=== PATIENT | female | born 1950 | race Caucasian/White ===

== ENCOUNTER 2017-11-28 06:19 | Inpatient (IN) ==
[2017-11-28] MEDS ORDERED: Clindamycin 900 MG/50 ML 900 MG/50 ML IV.SOLN IVPB ONE ×2 (06:35→12:06)
[2017-11-28] MEDS ORDERED: Albuterol 2.5 MG/3 ML NEBULIZER IH ONE (06:35)
[2017-11-28] MEDS ORDERED: Ringers Solution, Lactated 1,000 ML IVC SCH (06:45)
[2017-11-28] MEDS ORDERED: *HR* Propofol 200 MG/20 ML VIAL IVP ONE (07:04)
[2017-11-28] MEDS ORDERED: Lidocaine -MPF 4% 5 ML AMPUL ONE (07:04)
[2017-11-28] MEDS ORDERED: Lidocaine -MPF 2% 2 ML VIAL ONE (07:04)
[2017-11-28] MEDS ORDERED: *HR* FentaNYL (PF) 100 MCG/2 ML VIAL ONE ×2 (07:04→12:39)
[2017-11-28] MEDS ORDERED: *HR* Rocuronium Bromide 50 MG/5 ML VIAL ONE (07:04)
[2017-11-28] MEDS ORDERED: Dexamethasone 4 MG/ML VIAL ONE (07:04)
[2017-11-28] MEDS ORDERED: Ondansetron 4 MG/2 ML VIAL ONE (07:04)
[2017-11-28] MEDS ORDERED: *HR* Midazolam HCl 2 MG/2 ML VIAL ONE (07:04)
[2017-11-28] MEDS ORDERED: *HR* Remifentanil 1 MG VIAL IVP ONE ×3 (07:04→12:36)
[2017-11-28] MEDS ORDERED: *HR* Succinylcholine 200 MG/10 ML VIAL IVP ONE (07:04)
[2017-11-28] MEDS ORDERED: *HR* Phenylephrine 10 MG/ML VIAL ONE ×2 (07:11→12:33)
--- NOTE | 2017-11-28 07:23 | Anesthesia Evaluation PreOp ---
Date of Encounter: 11/28/17 Time of Encounter: 07:20 - Past History Planned Operation: PLIF L2-L5 Cardiac History: HTN, Hyperlipidemia, Arrhythmia (H/O A-Fib, last dose coumadin taken 11/20/2017) Pulmonary History: Smoker (40 years), Asthma, Snore PHOTOVOLTAIC SOLAR CELL DESIGNER History: Denies Any Significant HX Other Medical History: Diabetes Type II Anesthesia History: No Prior Anesthetic Complications, Past Anesthesia Alcohol Use: none Drug use: none Medications and Allergies Aspirin [Adult Low Dose Aspirin EC] 81 mg PO DAILY 05/06/15 [History] Atorvastatin [Lipitor] 40 mg PO HS 05/06/15 [History] Diltiazem HCl [Diltiazem ER] 240 mg PO Q12H 05/06/15 [History] Fluticasone Propionate [Flovent Hfa] 110 mcg IH BID 05/06/15 [History] Ipratropium/Albuterol Sulfate [Combivent Respimat Inhal [place]] 1 puff IH QID [History] Multivitamin [Multi-Day Vitamins] 1 each PO DAILY 05/06/15 [History] Ubidecarenone [Co Q10] 200 mg PO DAILY 05/06/15 [History] Cyanocobalamin (Vitamin B-12) [Vitamin B-12] 1,000 mcg SL DAILY 06/10/15 [ History] Ibuprofen [Motrin] 800 mg PO Q8HR 06/10/15 [History] Multivitamin [Multi-Day Vitamins] 1 each PO DAILY 06/10/15 [History] Oxycodone HCl/Acetaminophen [Percocet 10-325 mg Tablet] 1 tab PO Q6H PRN #39 tab 06/10/15 [Rx] 3 Allergy/AdvReac Type Severity Reaction Status Date / Time Penicillins Allergy Hives Verified 11/21/17 10:18 - Meds/Allergy Pre-op Review Medications Reviewed: Yes Allergies Reviewed: Yes Beta Blockers on Current Med List: No Anesthesia Results - Labs Laboratory Tests 11/21/17 11/21/17 11/21/17 10:55 10:55 10:55 WBC 6.9 Hgb 12.1 Hct 37.7 Plt Count 313 PT 24.8 H INR 2.2 APTT 45.7 H Sodium 138 Potassium 4.3 BUN 20 Creatinine 1.03 - Imaging EKG: report reviewed (11/21/2017 SINUS BRADYCARDIA WITH SINUS ARRHYTHMIA) Additional studies: 08/09/2014 Stress Perfusion imaging was negative for ischemia or infarct. Exercise ECG was negative for ischemia. Exercise capacity was fair. Normal hemodynamic response. Rare ectopy at rest and recovery. During stress there are occasional PACs and PVCs. Patient had no chest pain with stress. Gated EF = 63%. The LV is dilated. LVEDV 152 mL There is no evidence of TID. 08/08/2014 Echo LVEF 60%. Normal left ventricular size and systolic function. There is evidence of mild diastolic dysfunction of the left ventricle. Normal left atrial size. Normal right atrial size. Normal right ventricular size and function. No significant valvular dysfunction. No significant TR gradient to detect pulmonary hypertension. IVC is not dilated. Anesthesia Exam O2 Sat Height 1.63 m Height 1.63 m Height 1.63 m Weight 81.647 kg Weight 81.647 kg Weight 81.647 kg O2 Sat by Pulse Oximetry 97 Vital Signs Temp Pulse Resp BP Pulse Ox 98.1 F 69 18 134/66 97 11/28/17 06:44 11/28/17 06:44 11/28/17 06:44 11/28/17 06:44 11/28/17 06:44 Blood Glucose* 150 Height: 5'4'' Weight: 180 lbs NPO (# of Hours): 8 Pain Scale: 0 Pain Scale Used: Numeric (1 - 10) - HEENT Pupil (Motor): EOMI Mallampati: II Teeth: Normal Oral Opening: Greater than 3 - PHOTOVOLTAIC SOLAR CELL DESIGNER LOC: Oriented PHOTOVOLTAIC SOLAR CELL DESIGNER Motor: Normal RUE, Normal LUE, Normal LLE, Normal Face, Deficit RLE PHOTOVOLTAIC SOLAR CELL DESIGNER Sensory: Normal: RUE, LUE, RLE, LLE, Face - Cardiac Rhythm: Regular Murmur: None - Pulmonary Breath Sounds: bilateral Clear Respiratory Effort: Symmetrical Anesthesia Assess/Plan ASA Score: 3 Modified [place] Scale for Level of Consciousness: Cooperative, oriented, and tranquil Anesthetic Plan: General Monitoring Plan: Standard Monitors Recovery Plan: PACU
[2017-11-28] MEDS ORDERED: Acetaminophen IV 1,000 MG/100 ML INFUS..BTL ONE (07:36)
--- NOTE | 2017-11-28 07:38 | History & Physical Report ---
Date of Encounter: 11/28/17 Time of Encounter: 07:37 24 Hour HP Update - Instructions Instructions: If the History and Physical is less than 30 days old and was completed prior to A.M. admission and or procedure and has NOT been updated on calendar day of procedure please complete this update prior to performing procedure. - Update Patient reports changes in Medical Condition: No Changes in examination, assessment, or condition: No Changes in Medication: No Preop tests/diagnostics Reviewed: Yes Pre-Op MRSA Screen: Negative Surgery Remains Indicated: Yes Consent for Planned Operative Procedure(s) Verified: Yes - Pre-Operative Checklist Preoperative Checklist Indicated: No Prophylactic Antibiotic Ordered: Yes Home Medications Include Beta Raymond: No Beta Raymond Taken Today (Day of Surgery): No Beta Raymond Taken Yesterday (Day Prior to Surgery): No Is VTE Prophylaxis Indicated?: Yes
[2017-11-28] MEDS ORDERED: Bacitracin 50,000 UNIT, Polymyxin B Sulfate 500,000 UNIT, Sodium Chloride IRRigation 1,... IR ONE (07:45)
[2017-11-28] MEDS ORDERED: EPHEDrine 50 MG/ML VIAL ONE (08:02)
[2017-11-28] MEDS ORDERED: Ondansetron 4 MG/2 ML VIAL IVP ONE (08:49)
[2017-11-28] MEDS ORDERED: MORPHINE SUL Oral CONC 10 MG/0.5 ML ORAL.SYG SL PRN (08:49)
[2017-11-28] MEDS ORDERED: *HR* Promethazine 25 MG/ML VIAL IVP PRN (08:49)
[2017-11-28] MEDS ORDERED: *HR* Labetalol 20 MG/4 ML SYRINGE IVP PRN (08:49)
[2017-11-28] MEDS ORDERED: *HR* Meperidine 25 MG/ML SYRINGE IVP PRN (08:49)
[2017-11-28] MEDS ORDERED: *HR* HYDROmorphone (PF) 1 MG/ML SYRINGE IVP PRN (08:49)
[2017-11-28] MEDS ORDERED: *HR* OxyCODONE Immed Rel 5 MG TABLET PO PRN (08:49)
[2017-11-28] MEDS ORDERED: *HR* Morphine 10 MG/ML VIAL ONE (12:28)
--- NOTE | 2017-11-28 12:52 | Orthopedic Operative Note ---
Date of procedure: 11/28/17 Pre-op diagnosis: Degenerative scoliosis, lumbar stenosis, lumbar radiculopathy Post-op diagnosis: same Operation/Findings: Posterior lumbar interbody fusion L2-L5: The patient successfully underwent general endotracheal anesthesia. The patient was given antibiotics prior to the start of the procedure. Compression boots and stockings were used for deep vein thrombosis prophylaxis. A Beyer catheter was placed. Leads for neuro monitoring were placed on the upper and lower extremities. This included the cranium. The neuro monitoring personnel confirmed there were satisfactory readings prior to the start of the procedure. The patient was turned prone on the Aamir table. The back was prepped and draped in the usual sterile fashion. An incision was was marked and centered over the involved L2-L5 levels in the mid line. The incision was deepened through the lumbar fascia. Bovie cautery and Dotson elevators were used to reflect the paraspinal musculature at the lateral extent of the transverse processes of the involved L2 , L3, L4, and L5 levels. Zina clamps were placed over the L4 and L5 spinous processes. An intraoperative lateral fluorograph was obtained. A conversation was held between the surgeon and radiologist and both confirmed we had the correct operative levels. We then placed pedicle screws in standard fashion with the aid of fluoroscopy and anatomic landmarks. Briefly a starter awl was used. A gearshift was subsequently used to enter the quickbooks bookkeeper hole via a transpedicular route into the vertebral body. The quickbooks bookkeeper hole was tapped with an undersized instrument, and subsequently seven 6.5 x 40 mm pedicle screws were placed bilaterally at the indicated L2, L3 and L4 levels. A unilateral pedicle screw was placed on the right side at L5 secondary to concerns of screw placement on the left at L5. The screws were tested with the aid of the neurologic monitoring staff via pedicle screw stimulation. All reading suggested there was no significant cortical wall breech. The screws were also evaluated fluoro- graphically and appeared to be in satisfactory position. We then turned our attention to the decompression portion of the procedure. We removed the supraspinous and interspinous ligaments and subsequently the insertion of the ligamentum flavum on the undersurface of the proximal L4 lamina was dislodged with a curette. We then removed the ligamentum flavum as well as undercut the facets at this L4-L5 level to decompress the lateral recesses. We also performed a L4 laminectomy. We moved proximally to the L3-4 levels and subsequently to the L2-3 levels and again removed hypertrophied ligamentum flavum, undercut the facets at L3-4 and L2-3, did partial medial facetectomies, and performing laminectomies of L3 and L2. After the decompression, which was over and above that which was required to place the interbody grafts, the foramen and traversing roots at these L2-3, L3-4, and L4- 5 levels were found to be free and patent. We also took part of the medial facets at L2-3, L3-4, and L4-5 order to aid in the decompression. We then protected the neural elements including the thecal sac and traversing nerve root on the left at L3-4 with a dural retractor. We made an annulotomy into the L3-L4 disc space and then removed entire disc material using Pituitary instruments. We trialed various size grafts after the endplates were prepared for graft insertion. A 10 x 26 enter body graft fit well within the L3-L4 disc space. We obtained some bone from the left posterior superior iliac spine through us a separate incision and combined with this with the bone which we had saved from the laminectomy of L2, L3 and L4 portion of the procedure. This autograft bone was first placed in the anterior portion of the L3-L4 disc space and additional bone was placed within the interbody graft spacer. We then placed the interbody graft spacer obliquely across the L3-L4 disc space towards the midline while protecting the neural elements with a root retractor. When the graft was found to be in satisfactory position the manager express was removed. We then turned our attention to the L2-3 level where again we prepared for insertion of an interbody graft. This involved protecting the neural elements on the left with a dural retractor, making an annulotomy into the L2-3 disc space, removing entire disc material at L2-3, and trialing a interbody graft. An 8 x 26 mm interbody graft fit well within the disc space. We packed the anterior portion of the L2-3 disc space with autograft bone, and subsequently placed and a by 26 mm interbody graft obliquely across the disc space towards the midline. When found to be in appropriate position the manager express was removed. This left interbody grafts at L2-3 and L3-4. These were the levels where there was [id number] approximation on the left due to the degenerative scoliosis. We then copiously irrigated the wound. We then decorticated the transverse processes as well as the facet joints of the involved L2-3, L3-4, and L4 -L5 levels to aid in the posterolateral fusion. We placed autograft bone in the lateral gutters over these regions. We then placed rods within the screw heads of the involved levels L2 through L5 levels on the right and L2-L4 levels on the left. We performed distraction maneuvers on the left side of the screw jake interface and compression maneuvers on the right side to improve this degenerative scoliosis previously noted. We locked and finally tightened the construct. We then closed the wound in layers with 1 Vicryl for the fascia, 2- 0 Vicryl. Subcutaneous tissue, and Dermabond was used for skin closure. Sterile dressings were placed over the wound. The patient was turned supine on a hospital bed and extubated. All sponge instruments and needle counts were correct at the end of the procedure. The patient tolerated the procedure well without complications. Anesthesia: GETA Surgeon: Michael Quiñones Jr Was there an assistant real estate manager present: No Estimated blood loss (cc): 200 Specimen: none Condition: stable Disposition: PACU
[2017-11-28] MEDS ORDERED: Naloxone 0.4 MG/ML INJ IVP PRN (14:29)
[2017-11-28] MEDS ORDERED: Acetaminophen 325 MG TABLET PO PRN (14:29)
[2017-11-28] MEDS ORDERED: Ondansetron 4 MG/2 ML VIAL IVP PRN (14:29)
[2017-11-28] MEDS ORDERED: Clindamycin 600 MG/50 ML 600 MG/50 ML IV.SOLN IVPB SCH ×2 (16:00→21:45)
[2017-11-28] MEDS: *HR* OxyCODONE Immed Rel 5 MG TABLET PO PRN ×2 (16:27→20:26)
[2017-11-28] MEDS: Ringers Solution, Lactated 1,000 ML IVC SCH (16:27)
[2017-11-28] MEDS ORDERED: Clindamycin 600 MG in D5% in Water 50 ML IVPB SCH (20:00)
[2017-11-28] MEDS: Budesonide/Formoterol 80/4.5 MDI IH SCH (21:58)
[2017-11-28] MEDS: Clindamycin 600 MG/50 ML 600 MG/50 ML IV.SOLN IVPB SCH (21:58)
[2017-11-29] MEDS: *HR* OxyCODONE Immed Rel 5 MG TABLET PO PRN ×4 (00:25→22:16)
[2017-11-29 02:43] LABS: Basophils % 0.1 %; Hematocrit 24.3 % (35.3-44.9); Immature Granulocytes % 0.5 % (0-4); Lymphocytes % 10.5 %; Mean Corpuscular HGB Conc 32.9 g/dL (31.6-35.5); Mean Corpuscular Hemoglobin 30.1 pg (28.0-33.3); Mean Corpuscular Volume 91.4 fL (83.0-100.0); Mean Platelet Volume 10.2 fL (9.4-12.4); Monocytes # 0.8 K/mcL (0.0-1.3); Neutrophils # 7.7 K/mcL (1.6-8.9); Platelet Count 236 K/mcL (140-400); Red Blood Count 2.66 M/mcL (3.82-4.97); Red Cell Distribution Width 14.8 % (11.5-14.5); Segmented Neutrophils % 80.9 %
[2017-11-29 03:01] LABS: BUN/Creatinine Ratio 21 (6-26); Blood Urea Nitrogen 20 mg/dL (8-23); Calcium 8.3 mg/dL (8.6-10.3); Carbon Dioxide 23 mEq/L (23-29); Chloride 108 mEq/L (98-107); Glucose 153 mg/dL (70-105); Osmolality,Calculated 288 (280-300); Potassium 4.2 mEq/L (3.5-5.1); Sodium 136 mEq/L (136-145); eGFR For Non-African Americans 58 (> 60)
[2017-11-29] MEDS: Clindamycin 600 MG/50 ML 600 MG/50 ML IV.SOLN IVPB SCH (05:00)
[2017-11-29] MEDS: *HR* HYDROcodone/Acet 5/325 mg TABLET PO PRN (07:44)
[2017-11-29] MEDS: Ascorbic Acid 500 MG TABLET PO SCH (07:44)
[2017-11-29] MEDS: Metoprolol XL (24 HR) Succ 25 MG TAB.ER.24H PO SCH (07:44)
[2017-11-29] MEDS: Vitamin B Complex/Vit C/Vit E 1 EACH TABLET PO SCH (07:44)
[2017-11-29] MEDS: Loratadine 10 MG TABLET PO SCH (07:45)
[2017-11-29] MEDS: Cholecalciferol (D-3) 1,000 UNIT TABLET PO SCH (07:45)
[2017-11-29] MEDS: BuPROPion XL (24 HR) 150 MG TABLET PO SCH (07:45)
[2017-11-29] MEDS: Lisinopril-HCTZ 20-12.5mg TABLET PO SCH (07:45)
[2017-11-29] MEDS: Multivit/Ca/Min/Fe/FA 1 TAB TABLET PO SCH (07:45)
[2017-11-29] MEDS: Aspirin Enteric Coated 81 MG Tablet PO SCH (07:45)
[2017-11-29] MEDS: (Ubidecarenone [Co Q-10] 200 MG) PO SCH (07:46)
[2017-11-29] MEDS: *HR* Metformin 500 MG TABLET PO SCH (07:46)
[2017-11-29] MEDS: Ringers Solution, Lactated 1,000 ML IVC SCH (07:47)
[2017-11-29] MEDS: Budesonide/Formoterol 80/4.5 MDI IH SCH ×2 (07:52→20:17)
--- NOTE | 2017-11-29 12:36 | Spine Progress Note ---
Date of Encounter: 11/29/17 Time of Encounter: 12:35 Subjective Principal diagnosis: Degenerative scoliosis, lumbar stenosis, lumbar radiculopathy Interval history: The patient is without complaints. Afebrile vital signs are stable. Dressing is clean dry and intact. Neurovascularly intact with regard to bilateral lower extremities. Fires all upper and lower extremity motor groups. . Assessment : stable. Plan mobilize ,continue analgesics, discharge planning. Objective Vital signs: Vital Signs Temp Pulse Resp BP Pulse Ox 11/29/17 11:59 98.5 F 72 16 107/66 95 11/29/17 07:52 18 93 11/29/17 07:45 98.5 F 70 18 103/55 94 11/29/17 03:15 99.4 F 66 16 112/64 94 11/28/17 22:36 98.5 F 72 16 124/62 95 11/28/17 21:58 16 93 11/28/17 19:45 98.9 F 68 18 102/56 96 11/28/17 17:07 98.6 F 68 14 108/70 96 11/28/17 16:00 97.4 F L 76 14 112/52 95 11/28/17 15:34 97.5 F L 68 14 92/53 95 11/28/17 15:07 98.0 F 72 14 102/65 92 11/28/17 14:31 97.8 F 76 16 102/54 92 11/28/17 13:23 99.7 F H 85 16 99/68 95 11/28/17 13:13 86 16 104/55 95 11/28/17 13:03 90 16 119/66 98 11/28/17 12:53 99.9 F H 89 16 114/60 100 Intake and Output 11/28/17 11/29/17 11/29/17 23:59 07:59 15:59 Intake Total 100 / 100 1000 / 1000 Output Total 675 / 675 700 / 700 Balance -575 / -575 300 / 300 Intake: IV Fluids 50 / 50 1000 / 1000 Lactated Ringers 1,000 ML @ 100 1000 / 1000 mls/hr IVC .Q10H [facility] Rx#: [id number] Cleocin Premix 600 MG/50 ML 600 50 / 50 mg In 50 ml @ 46.296 mls/hr IVPB Q8H [facility] Rx#:[id number] Oral 50 / 50 Output: Catheter 675 / 675 700 / 700 Other: Blood Glucose* 218 161 - Labs CBC & BMP: 11/29/17 02:13 11/29/17 02:13 Labs: Abnormal lab results RBC 2.66 M/mcL (3.82-4.97) L 11/29/17 02:13 Hgb 8.0 g/dL (11.5-15.4) L 11/29/17 02:13 Hct 24.3 % (35.3-44.9) L 11/29/17 02:13 RDW 14.8 % (11.5-14.5) H 11/29/17 02:13 Chloride 108 mEq/L (98-107) H 11/29/17 02:13 Est GFR (Non-Af Amer) 58 (> 60) L 11/29/17 02:13 Glucose 153 mg/dL (70-105) H 11/29/17 02:13 POC Glucose 218 mg/dL (70-99) H 11/28/17 19:47 Calcium 8.3 mg/dL (8.6-10.3) L 11/29/17 02:13 Consult Discharge Plan - Plan Referrals: Kenroy Chase MD [Primary Care Provider] -
[2017-11-29] MEDS: Methocarbamol 500 MG TABLET PO PRN (16:36)
[2017-11-30] MEDS: *HR* OxyCODONE Immed Rel 5 MG TABLET PO PRN ×3 (02:18→23:28)
[2017-11-30] MEDS: Budesonide/Formoterol 80/4.5 MDI IH SCH ×2 (07:37→20:23)
[2017-11-30] MEDS: Aspirin Enteric Coated 81 MG Tablet PO SCH (08:44)
[2017-11-30] MEDS: *HR* Metformin 500 MG TABLET PO SCH (08:44)
[2017-11-30] MEDS: Loratadine 10 MG TABLET PO SCH (08:44)
[2017-11-30] MEDS: Ascorbic Acid 500 MG TABLET PO SCH (08:45)
[2017-11-30] MEDS: BuPROPion XL (24 HR) 150 MG TABLET PO SCH (08:45)
[2017-11-30] MEDS: Vitamin B Complex/Vit C/Vit E 1 EACH TABLET PO SCH (08:45)
[2017-11-30] MEDS: Metoprolol XL (24 HR) Succ 25 MG TAB.ER.24H PO SCH (08:45)
[2017-11-30] MEDS: Cholecalciferol (D-3) 1,000 UNIT TABLET PO SCH (08:45)
[2017-11-30] MEDS: Lisinopril-HCTZ 20-12.5mg TABLET PO SCH (08:45)
[2017-11-30] MEDS: Methocarbamol 500 MG TABLET PO PRN ×2 (08:45→20:18)
[2017-11-30] MEDS: Multivit/Ca/Min/Fe/FA 1 TAB TABLET PO SCH (08:46)
[2017-11-30] MEDS: (Ubidecarenone [Co Q-10] 200 MG) PO SCH (09:05)
[2017-11-30] MEDS: *HR* HYDROcodone/Acet 5/325 mg TABLET PO PRN (14:05)
[2017-12-01] MEDS: *HR* HYDROcodone/Acet 5/325 mg TABLET PO PRN ×2 (01:21→16:40)
[2017-12-01] MEDS: Budesonide/Formoterol 80/4.5 MDI IH SCH (08:08)
[2017-12-01] MEDS: BuPROPion XL (24 HR) 150 MG TABLET PO SCH (09:18)
[2017-12-01] MEDS: Ascorbic Acid 500 MG TABLET PO SCH (09:19)
[2017-12-01] MEDS: Metoprolol XL (24 HR) Succ 25 MG TAB.ER.24H PO SCH (09:19)
[2017-12-01] MEDS: *HR* Metformin 500 MG TABLET PO SCH (09:19)
[2017-12-01] MEDS: Multivit/Ca/Min/Fe/FA 1 TAB TABLET PO SCH (09:19)
[2017-12-01] MEDS: Vitamin B Complex/Vit C/Vit E 1 EACH TABLET PO SCH (09:19)
[2017-12-01] MEDS: Loratadine 10 MG TABLET PO SCH (09:19)
[2017-12-01] MEDS: Lisinopril-HCTZ 20-12.5mg TABLET PO SCH (09:19)
[2017-12-01] MEDS: *HR* OxyCODONE Immed Rel 5 MG TABLET PO PRN (09:20)
[2017-12-01] MEDS: Aspirin Enteric Coated 81 MG Tablet PO SCH (09:20)
[2017-12-01] MEDS: (Ubidecarenone [Co Q-10] 200 MG) PO SCH (09:20)
[2017-12-01] MEDS: Cholecalciferol (D-3) 1,000 UNIT TABLET PO SCH (09:23)
[2017-12-01] MEDS ORDERED: D5% in Water 1,000 ML IVC PRN (12:26)
[2017-12-01] MEDS ORDERED: Dextrose Gel 15 GM/37.5 ML TUBE PO PRN ×2 (12:26)
[2017-12-01] MEDS ORDERED: *HR* Dextrose 50 % in Water (Syg) 50 ML SYRINGE IVP PRN (12:26)
[2017-12-01] MEDS: Insulin LISPRO 300 UNITS/3 ML VIAL SQ SCH ×2 (13:00→16:34)
[2017-12-01 16:30] VITALS: BP 121/63
--- NOTE | 2017-12-01 17:22 | Discharge Summary ---
- NOTES TO OUTPATIENT PROVIDER Notes to Outpatient Provider: Follow-up in [facility] in 2 weeks Orders not resulted at time of discharge: Pending orders 11/28/17 XR fluoroscopy <1 hr [XR] Routine Date of Encounter: 12/01/17 Time of Encounter: 17:22 - Discharge Diagnosis (1) Degenerative scoliosis in adult patient Priority: Primary Status: Chronic (2) Lumbar stenosis without neurogenic claudication Priority: Secondary Status: Chronic (3) Lumbar radiculopathy Priority: Secondary Status: Chronic - Hospital Course Hospital course: Ms. Pennington is a 67 year old female The patient had an uneventful postoperative course. Progressed from intravenous analgesic needs to oral analgesic needs only. Remained neurovascularly intact and mobilized satisfactorily. All intraoperative and/or postoperative radiographic studies were satisfactory. Patient is discharged with plan for rehabilitation and follow-up in 2 weeks post discharge on analgesic medication and patient's home medications. - Time Spent with Patient Total time spent providing and/or coordinating discharge services: - Discharge Medications Prescriptions: OxyCODONE Immed Rel [Roxicodone 5 MG] 5 mg PO Q4HR PRN 7 Days #40 tablet PRN Reason: Severe Pain Home Medications: Atorvastatin [Lipitor] 40 mg PO HS 05/06/15 [History] Ibuprofen [Motrin] 800 mg PO Q8HR PRN 06/10/15 [History] Albuterol Sulfate [Ventolin Hfa] 2 puff IH Q4H PRN 11/28/17 [History] Ascorbic Acid [Vitamin C] 1,000 mg PO DAILY 11/28/17 [History] Aspirin [Adult Aspirin Regimen] 81 mg PO DAILY 11/28/17 [History] Bupropion HCl [Wellbutrin Xl] 300 mg PO DAILY 11/28/17 [History] Cholecalciferol (D-3) [Vitamin D] 5,000 unit PO DAILY 11/28/17 [History] Fluticasone/Salmeterol [Advair 250-50 Diskus] 1 puff IH BID 11/28/17 [History] Lisinopril-HCTZ 20-12.5 [Prinzide 20-12.5] 0.5 tab PO DAILY 11/28/17 [History] Loratadine [Allergy Relief] 10 mg PO DAILY 11/28/17 [History] Metformin HCl [Fortamet] 500 mg PO DAILY 11/28/17 [History] Methocarbamol [Robaxin] 500 mg PO Q8HR PRN 11/28/17 [History] Metoprolol XL (24 HR) Succ [Toprol Xl] 25 mg PO DAILY 11/28/17 [History] Multivitamin [One Daily Essential] 1 each PO DAILY 11/28/17 [History] Ubidecarenone [Co Q-10] 200 mg PO DAILY 11/28/17 [History] Vitamin B Complex [B Complex] 1 each PO DAILY 11/28/17 [History] Warfarin Sodium 5 mg PO DAILY 11/28/17 [History] OxyCODONE Immed Rel [Roxicodone 5 MG] 5 mg PO Q4HR PRN 7 Days #40 tablet [Rx] Allergies/Adverse Reactions: 3 Allergy/AdvReac Type Severity Reaction Status Date / Time Penicillins Allergy Hives Verified 11/28/17 08:07 Date of admission: 11/28/17 14:27 Primary care physician: Kenroy Chase MD Consults: 11/28/17 14:29 Consult to Occupational Therapy [CONS] Routine Comment: Evaluate, develop and implement POC Reason for Consult: Postoperative rehabilitation Does patient have active BEDREST order?: No Is patient medically & hemodynamically stable?: Yes Patient assessed for mobility or mobilized this visit?: No Consult to Physical Therapy [CONS] Routine Comment: Evaluate, develop and implement POC Reason for Consult: Postoperative rehabilitation Does patient have active BEDREST order?: No Is patient medically & hemodynamically stable?: Yes Patient assessed for mobility or mobilized this visit?: No Consult to Spine Navigator [CONS] [CONS] Routine 12/01/17 10:14 Consult to Airplane And Engine Inspector [CONS] Routine Reason for SW Consult: possible need for rehab Labs on day of discharge: Labs from last 24 hours 12/01/17 12/01/17 12/01/17 16:25 12:07 07:48 POC Glucose 139 H 164 H 176 H 11/30/17 11/30/17 11/30/17 20:04 16:24 11:34 POC Glucose 177 H 120 H 192 H 11/30/17 07:31 POC Glucose 162 H - Impressions ITS Impressions Lumbar Spine X-Ray 11/28/17 00:00 IMPRESSION: 1. Posterior spinal fusion between L2 and L5 with no immediate complications. D/ / Jai Jones MD / Jai Jones MD Interpreting Provider: Jai Jones MD Lumbar Spine X-Ray 12/01/17 08:30 IMPRESSION: Status post pedicle screw and jake fusion from L2 through L4 as discussed above. Mild retrolisthesis with intervertebral disc spacer at L2-3 and L3-4. Facet arthropathy and disc space narrowing at L5-S1. No acute finding by plain film imaging. D/ / 12/01/2017 14:30:06 Blanquita Metz MD / sharmila Interpreting Provider: Blanquita Metz MD - Patient Status Disposition: Home Health Service Condition: Good Functional capacity at discharge: uses cane/walker Overall status at discharge: patient is progressing back to baseline - Discharge Instructions Follow Up With: Kenroy Chase MD [Primary Care Provider] - - Diet and Activity Activity: as per physical therapy Diet: advance to your usual diet
--- NOTE | 2017-12-01 17:22 | Spine Progress Note ---
Date of Encounter: 11/30/17 Time of Encounter: 16:20 Subjective Principal diagnosis: Degenerative scoliosis, lumbar stenosis, lumbar radiculopathy Interval history: The patient is without complaints. Afebrile vital signs are stable. Dressing is clean dry and intact. Neurovascularly intact with regard to bilateral lower extremities. Fires all upper and lower extremity motor groups. . Assessment : stable. Plan mobilize ,continue analgesics, discharge planning. Objective Vital signs: Vital Signs Temp Pulse Resp BP Pulse Ox 12/01/17 16:26 99.9 F H 89 16 121/63 93 12/01/17 12:08 99.4 F 88 16 125/72 93 12/01/17 08:08 18 95 12/01/17 07:16 99.2 F 84 16 115/69 94 12/01/17 04:24 99.5 F 82 17 126/69 94 12/01/17 00:58 98.4 F 84 17 124/51 95 11/30/17 20:23 17 95 11/30/17 20:20 95 11/30/17 19:56 99.3 F 85 18 107/66 95 Intake and Output 12/01/17 12/01/17 12/01/17 07:59 15:59 23:59 Intake Total 200 / 200 Output Total 400 / 400 100 / 100 Balance -400 / -400 100 / 100 Intake: Oral 200 / 200 Output: Urine 400 / 400 100 / 100 Other: Meal Breakfast Percent of Meal Consumed 20% Weight 82.4 kg Blood Glucose* 176 164 139 Patient Weight 12/01/17 23:59 Weight 82.4 kg - Labs CBC & BMP: 11/29/17 02:13 11/29/17 02:13 Labs: Abnormal lab results RBC 2.66 M/mcL (3.82-4.97) L 11/29/17 02:13 Hgb 8.0 g/dL (11.5-15.4) L 11/29/17 02:13 Hct 24.3 % (35.3-44.9) L 11/29/17 02:13 RDW 14.8 % (11.5-14.5) H 11/29/17 02:13 Chloride 108 mEq/L (98-107) H 11/29/17 02:13 Est GFR (Non-Af Amer) 58 (> 60) L 11/29/17 02:13 Glucose 153 mg/dL (70-105) H 11/29/17 02:13 POC Glucose 139 mg/dL (70-99) H 12/01/17 16:25 Calcium 8.3 mg/dL (8.6-10.3) L 11/29/17 02:13 Consult Discharge Plan - Plan Referrals: Kenroy Chase MD [Primary Care Provider] -
[2017-12-01] MEDS ORDERED: *HR* Warfarin 5 MG TABLET PO SCH (18:00)
[2017-12-01] MEDS ORDERED: Insulin LISPRO 300 UNITS/3 ML VIAL SQ SCH (21:00)
[2017-12-02] MEDS ORDERED: (Ubidecarenone [Co Q-10] 200 MG) PO SCH (09:00)
== END 2017-12-01 19:47 | disposition home health service (06) | DRG 455 ==
LOC: SAMDAY 06:19 → 3NENU 14:27
PROVIDERS: ADMIT Orthopaedic Surgery Orthopaedic Surgery of the Spine; ATTEND Orthopaedic Surgery Orthopaedic Surgery of the Spine

== ENCOUNTER 2020-01-17 07:59 | Inpatient (IN) ==
[~2020-01-17 07:59] MED LIST: Famotidine 20 MG/2 ML VIAL IVP ONE
[2020-01-17] MEDS ORDERED: 0.9 % Sodium Chloride 500 ML IVC SCH (08:15)
[2020-01-17] MEDS ORDERED: CeFAZolin Syr 2,000MG/20 ML 2,000 MG/20 ML SYRINGE IVPB ONE (08:41)
[2020-01-17] MEDS ORDERED: *HR* HYDROmorphone (PF) 1 MG/ML SYRINGE IVP PRN (08:44)
[2020-01-17] MEDS ORDERED: Ondansetron 4 MG/2 ML VIAL IVP PRN ×3 (08:44→14:28)
[2020-01-17] MEDS ORDERED: *HR* Labetalol 20 MG/4 ML SYRINGE IVP PRN (08:44)
[2020-01-17] MEDS ORDERED: Promethazine Syrup 6.25 MG/5 ML PO PRN (08:44)
[2020-01-17] MEDS ORDERED: Lidocaine OINT 35.44 GM TUBE TP ONE (08:47)
[2020-01-17] MEDS ORDERED: Heparin 1,000 UNITS/500 mL 500 ML ONE (08:58)
[2020-01-17] MEDS ORDERED: *HR* Heparin 5,000 UNIT/ML VIAL ONE (09:18)
[2020-01-17] MEDS ORDERED: *HR* Phenylephrine 10 MG/ML VIAL ONE (09:22)
[2020-01-17] MEDS ORDERED: Lidocaine -MPF 2% 2 ML VIAL ONE (09:27)
[2020-01-17] MEDS ORDERED: *HR* Rocuronium Bromide 50 MG/5 ML VIAL ONE ×2 (09:27→10:43)
[2020-01-17] MEDS ORDERED: Ketorolac 30 MG/ML VIAL ONE (09:27)
[2020-01-17] MEDS ORDERED: *HR* Succinylcholine 200 MG/10 ML VIAL IVP ONE (09:27)
[2020-01-17] MEDS ORDERED: *HR* Propofol 200 MG/20 ML VIAL IVP ONE ×2 (09:27→10:37)
[2020-01-17] MEDS ORDERED: Lidocaine HCL 4 ML Topical Solution (Laryng-O-Jet Kit Sterile Pak) TP ONE (09:27)
[2020-01-17] MEDS ORDERED: Dexamethasone 4 MG/ML VIAL ONE (09:27)
[2020-01-17] MEDS ORDERED: Ondansetron 4 MG/2 ML VIAL ONE (09:27)
[2020-01-17] MEDS ORDERED: *HR* PHENYLEPHRINE 1,000 MCG/10 ML SYRINGE IVP ONE (09:27)
[2020-01-17] MEDS ORDERED: *HR* FentaNYL (PF) 100 MCG/2 ML VIAL ONE (09:27)
[2020-01-17] MEDS ORDERED: *HR* Midazolam HCl 2 MG/2 ML VIAL ONE (09:27)
[2020-01-17] MEDS ORDERED: *HR* Remifentanil 1 MG VIAL IVP ONE (09:29)
[2020-01-17] MEDS ORDERED: EPHEDrine 50 MG/ML VIAL ONE (10:06)
[2020-01-17] MEDS ORDERED: *HR* HYDROMORPHONE 2 MG/ML VIAL ONE (10:35)
[2020-01-17] MEDS ORDERED: Naloxone 0.4 MG/ML INJ IVP PRN (12:33)
[2020-01-17] MEDS ORDERED: *HR* HYDROcodone/Acet 5/325 mg TABLET PO PRN ×2 (12:33→14:28)
[2020-01-17] MEDS ORDERED: methocarbamoL 500 MG TABLET PO PRN (12:35)
[2020-01-17] MEDS ORDERED: 0.9 % Sodium Chloride 1,000 ML IVC SCH (12:45)
[2020-01-17] MEDS: *HR* HYDROmorphone PF 0.5 MG/0.5 ML SYRINGE IVP PRN ×4 (13:12→13:49)
[2020-01-17] MEDS ORDERED: *HR* Heparin 5,000 UNIT/ML VIAL SQ SCH (14:00)
[2020-01-17] MEDS ORDERED: *HR* Dextrose 50 % in Water (Vial) 50 ML VIAL IVP PRN (14:28)
[2020-01-17] MEDS ORDERED: D5% in Water 1,000 ML IVC PRN (14:28)
[2020-01-17] MEDS ORDERED: Dextrose Gel 15 GM/37.5 ML TUBE PO PRN ×2 (14:28)
[2020-01-17] MEDS: Gabapentin 300 MG CAPSULE PO SCH ×2 (14:57→20:28)
[2020-01-17] MEDS ORDERED: Gabapentin 300 MG CAPSULE PO SCH (15:00)
[2020-01-17] MEDS: 0.9 % Sodium Chloride 1,000 ML IVC SCH (15:54)
[2020-01-17] MEDS ORDERED: Ipratropium/Albuterol Neb 3 ML IH SCH (16:00)
[2020-01-17] MEDS: Insulin LISPRO 300 UNITS/3 ML VIAL SQ SCH ×2 (16:36→20:29)
[2020-01-17] MEDS: methocarbamoL 500 MG TABLET PO PRN (18:13)
[2020-01-17] MEDS: Budesonide/Formoterol 160/4.5 1 PUFF INH IH SCH (20:08)
[2020-01-17] MEDS: *HR* OxyCODONE/APAP 10/325 TABLET PO PRN (20:24)
[2020-01-17] MEDS: Sennosides/Docusate Sodium TABLET PO SCH (20:28)
[2020-01-17] MEDS: Famotidine 20 MG TABLET PO SCH (20:28)
[2020-01-17] MEDS: Azelastine 0.1% Nasal Spray 30 ML BOTTLE NS SCH (20:31)
[2020-01-17] MEDS: *HR* Heparin 5,000 UNIT/ML VIAL SQ SCH (20:41)
[2020-01-17] MEDS ORDERED: Sennosides/Docusate Sodium TABLET PO SCH (21:00)
[2020-01-17] MEDS ORDERED: Famotidine 20 MG TABLET PO SCH (21:00)
[2020-01-17] MEDS ORDERED: Azelastine 0.1% Nasal Spray 30 ML BOTTLE NS SCH (21:00)
[2020-01-17] MEDS ORDERED: Budesonide/Formoterol 80/4.5 1 PUFF INH IH SCH (22:00)
[2020-01-18 01:58] LABS: Hematocrit 36.5 % (35.3-44.9); Hemoglobin 10.6 g/dL (11.5-15.4); Mean Corpuscular Hemoglobin 30.6 pg (28.0-33.3); Mean Platelet Volume 10.7 fL (9.4-12.4); Platelet Count 191 K/mcL (140-400); Red Blood Count 3.46 M/mcL (3.82-4.97); Red Cell Distribution Width 15.1 % (11.5-14.5); White Blood Count 8.8 K/mcL (4.3-11.1)
[2020-01-18 02:00] LABS: Mean Corpuscular Volume 105.5 fL (83.0-100.0)
[2020-01-18 02:31] LABS: Potassium 4.9 mEq/L (3.5-5.1)
[2020-01-18] MEDS: *HR* OxyCODONE/APAP 10/325 TABLET PO PRN ×5 (03:16→20:50)
[2020-01-18] MEDS: 0.9 % Sodium Chloride 1,000 ML IVC SCH (06:51)
[2020-01-18] MEDS: *HR* Heparin 5,000 UNIT/ML VIAL SQ SCH ×3 (06:53→20:49)
[2020-01-18] MEDS: Budesonide/Formoterol 160/4.5 1 PUFF INH IH SCH ×2 (08:06→20:02)
[2020-01-18] MEDS: Insulin LISPRO 300 UNITS/3 ML VIAL SQ SCH ×4 (08:12→20:51)
[2020-01-18] MEDS: methocarbamoL 500 MG TABLET PO PRN (08:25)
[2020-01-18] MEDS ORDERED: BuPROPion XL (24 HR) 150 MG TABLET PO SCH (09:00)
[2020-01-18] MEDS ORDERED: Metoprolol XL (24 HR) Succ 25 MG TAB.ER.24H PO SCH (09:00)
[2020-01-18] MEDS ORDERED: Loratadine 10 MG TABLET PO SCH (09:00)
[2020-01-18] MEDS: Famotidine 20 MG TABLET PO SCH ×2 (09:24→20:50)
[2020-01-18] MEDS: Sennosides/Docusate Sodium TABLET PO SCH ×2 (09:24→20:50)
[2020-01-18] MEDS: BuPROPion XL (24 HR) 150 MG TABLET PO SCH (09:25)
[2020-01-18] MEDS: Metoprolol XL (24 HR) Succ 25 MG TAB.ER.24H PO SCH (09:25)
[2020-01-18] MEDS: Loratadine 10 MG TABLET PO SCH (09:25)
[2020-01-18] MEDS: Gabapentin 300 MG CAPSULE PO SCH ×3 (09:25→20:51)
[2020-01-18] MEDS: Azelastine 0.1% Nasal Spray 30 ML BOTTLE NS SCH ×2 (09:26→20:50)
[2020-01-18] MEDS: *HR* HYDROmorphone (PF) 1 MG/ML SYRINGE IVP PRN ×2 (13:54→17:55)
[2020-01-19] MEDS: *HR* Heparin 5,000 UNIT/ML VIAL SQ SCH ×3 (05:42→19:41)
[2020-01-19] MEDS: *HR* OxyCODONE/APAP 10/325 TABLET PO PRN ×4 (05:45→20:41)
[2020-01-19 05:59] LABS: Calcium 8.3 mg/dL (8.6-10.3); Potassium 4.4 mEq/L (3.5-5.1)
[2020-01-19] MEDS: methocarbamoL 500 MG TABLET PO PRN (07:11)
[2020-01-19] MEDS: Budesonide/Formoterol 160/4.5 1 PUFF INH IH SCH ×2 (07:58→20:17)
[2020-01-19] MEDS: Famotidine 20 MG TABLET PO SCH (08:40)
[2020-01-19] MEDS: Metoprolol XL (24 HR) Succ 25 MG TAB.ER.24H PO SCH (08:40)
[2020-01-19] MEDS: Loratadine 10 MG TABLET PO SCH (08:40)
[2020-01-19] MEDS: Gabapentin 300 MG CAPSULE PO SCH ×3 (08:41→19:41)
[2020-01-19] MEDS: Sennosides/Docusate Sodium TABLET PO SCH ×2 (08:41→19:41)
[2020-01-19] MEDS: BuPROPion XL (24 HR) 150 MG TABLET PO SCH (08:41)
[2020-01-19] MEDS: Insulin LISPRO 300 UNITS/3 ML VIAL SQ SCH ×4 (08:47→19:27)
[2020-01-19] MEDS: Azelastine 0.1% Nasal Spray 30 ML BOTTLE NS SCH ×2 (08:49→19:38)
[2020-01-19] MEDS: *HR* HYDROmorphone (PF) 1 MG/ML SYRINGE IVP PRN (09:13)
[2020-01-20] MEDS: *HR* OxyCODONE/APAP 10/325 TABLET PO PRN ×4 (03:08→19:40)
[2020-01-20] MEDS: *HR* Heparin 5,000 UNIT/ML VIAL SQ SCH ×3 (05:37→21:04)
[2020-01-20] MEDS: Insulin LISPRO 300 UNITS/3 ML VIAL SQ SCH ×4 (07:40→21:03)
[2020-01-20] MEDS: Budesonide/Formoterol 160/4.5 1 PUFF INH IH SCH ×2 (07:47→21:21)
[2020-01-20] MEDS: Sennosides/Docusate Sodium TABLET PO SCH ×2 (08:20→21:02)
[2020-01-20] MEDS: Famotidine 20 MG TABLET PO SCH (08:20)
[2020-01-20] MEDS: Gabapentin 300 MG CAPSULE PO SCH ×3 (08:20→21:02)
[2020-01-20] MEDS: Azelastine 0.1% Nasal Spray 30 ML BOTTLE NS SCH ×2 (08:20→21:01)
[2020-01-20] MEDS: BuPROPion XL (24 HR) 150 MG TABLET PO SCH (08:21)
[2020-01-20] MEDS: Loratadine 10 MG TABLET PO SCH (08:21)
[2020-01-20] MEDS: Metoprolol XL (24 HR) Succ 25 MG TAB.ER.24H PO SCH (08:21)
[2020-01-20] MEDS: methocarbamoL 500 MG TABLET PO PRN (11:44)
[2020-01-21] MEDS: *HR* OxyCODONE/APAP 10/325 TABLET PO PRN ×3 (02:32→13:11)
[2020-01-21 03:27] LABS: Calcium 8.6 mg/dL (8.6-10.3)
[2020-01-21] MEDS: *HR* Heparin 5,000 UNIT/ML VIAL SQ SCH (04:37)
[2020-01-21] MEDS: Budesonide/Formoterol 160/4.5 1 PUFF INH IH SCH (07:52)
[2020-01-21] MEDS: BuPROPion XL (24 HR) 150 MG TABLET PO SCH (08:00)
[2020-01-21] MEDS: Famotidine 20 MG TABLET PO SCH (08:00)
[2020-01-21] MEDS: Metoprolol XL (24 HR) Succ 25 MG TAB.ER.24H PO SCH (08:00)
[2020-01-21] MEDS: Gabapentin 300 MG CAPSULE PO SCH (08:00)
[2020-01-21] MEDS: Sennosides/Docusate Sodium TABLET PO SCH (08:00)
[2020-01-21] MEDS: Loratadine 10 MG TABLET PO SCH (08:01)
[2020-01-21] MEDS: Azelastine 0.1% Nasal Spray 30 ML BOTTLE NS SCH (08:02)
[2020-01-21] MEDS: Insulin LISPRO 300 UNITS/3 ML VIAL SQ SCH ×2 (08:03→13:01)
[2020-01-21 11:39] VITALS: BP 131/62
[2020-01-21] MEDS: methocarbamoL 500 MG TABLET PO PRN (13:11)
== END 2020-01-21 15:11 | disposition home or self-care (01) | DRG 165 ==
LOC: SAMDAY 07:59 → 2NNU 14:26
PROVIDERS: ADMIT Thoracic Surgery (Cardiothoracic Vascular Surgery); ATTEND Thoracic Surgery (Cardiothoracic Vascular Surgery)